=== PATIENT | female | born 1930 | race Caucasian/White ===

== ENCOUNTER 2017-12-02 13:54 | Emergency (ER) | payer MEDICARE, BC ==
[~2017-12-02] VITALS: Ht 162.6 cm; Wt 65.8 kg
[2017-12-02] MEDS ORDERED: ACETAMINOPHEN ES 500 MG TABLET PO ONE (14:30)
[2017-12-02] MEDS ORDERED: ACETAMINOPHEN ES 500 MG TABLET ONE (14:31)
--- NOTE | 2017-12-02 14:52 | NUR ---
PT TO CT
--- NOTE | 2017-12-02 15:11 | NUR ---
PT BACK FROM CT
[2017-12-02 15:51] VITALS: BP 142/74
== END 2017-12-02 16:35 | disposition home or self-care (01) ==
LOC: ER 14:05
DX: S09.90XA Unspecified injury of head, initial encounter (principal); S20.229A Contusion of unspecified back wall of thorax, initial encounter; E78.5 Hyperlipidemia, unspecified; I10 Essential (primary) hypertension; M50.323 Other cervical disc degeneration at C6-C7 level; Z98.890 Other specified postprocedural states; Z95.5 Presence of coronary angioplasty implant and graft; W18.30XA Fall on same level, unspecified, initial encounter; Y93.01 Activity, walking, marching and hiking; Y92.89 Other specified places as the place of occurrence of the external cause; Y99.8 Other external cause status
CPT/HCPCS: 70450; 71045; 72125; 72128; 93005; 99284; A4606; Z7610